=== PATIENT | female | born 1975 | race Caucasian/White ===

== ENCOUNTER 2019-06-13 15:33 | Outpatient (CLI) | payer MEDICARE, MEDICAID, SELFPAY | END 2019-06-13 15:34 | disposition home or self-care (01) | LOC: SPT 15:35 | PROVIDERS: Family Provider Nurse Practitioner Family; PCP Family Medicine; Visit Provider Orthopaedic Surgery | DX: G56.03 Carpal tunnel syndrome, bilateral upper limbs (principal) | CPT/HCPCS: L3908 ==

== ENCOUNTER → 2020-09-18 10:42 | Outpatient (BNVA) | payer MEDICARE, MEDICAID, SELFPAY | PROVIDERS: Family Provider Nurse Practitioner Family; PCP Family Medicine; Visit Provider Orthopaedic Surgery | DX: Z20.822 Contact with and (suspected) exposure to COVID-19 (principal) | CPT/HCPCS: 87635 ==

== ENCOUNTER 2020-09-24 10:17 | Day surgery (SDC) | payer MEDICARE, MEDICAID, SELFPAY ==
[2020-09-23 16:30] VITALS: BMI 36.8
[2020-09-24] VITALS (8 sets, daily range): BP systolic 116–170; BP diastolic 63–96; PULSE 63–89; RESP 16–18; TEMP 36.5–37.2; O2SAT 96–99
[2020-09-24 10:45] LABS: OR HCG Qualitative Urine Negative (Negative)
[2020-09-24] MEDS: sodium chloride 0.9% 1,000 ML 30 ML IV (11:10)
--- NOTE | 2020-09-24 12:35 | ANES.PREANE2 ---
Pre-Anesthetic Assessment Pre-Anesthetic Assessment: Height/Weight: Height 1.63 m Weight 97.522 kg Temp Pulse Resp BP Pulse Ox 98.8 F 63 16 133/73 99 09/24/20 10:38 09/24/20 10:38 09/24/20 10:38 09/24/20 10:38 09/24/20 10:38 Preop Diagnosis: Carpal tunnel syndrome Right wrist Proposed Procedure: Operation Date: 09/24/20 12:00 Proposed Procedures p Carpal Tunnel Release 30723 G56.03(Right) - Ranjit Patel MD Familial anesthetic complications: none Was Beta Megan taken within 24 hours: N/A Was Clonidine taken within 24 hours: N/A Last intake: Intake Last Liquid Date 09/23/20 Last Liquid Time 23:00 Last Solid Date 09/23/20 Last Solid Time 20:00 Social: Social History: No alcohol and No tobacco Exam: Pre-Anes Outpt Exam: alert, oriented x 3, clear to auscultation bilaterally and regular rate & rhythm Airway: Cervical ROM: WNL MP: 4 Dentition: Full Additional comments: small mouth opening GI: GI: GERD Metabolic: Metabolic: Morbid obesity Anesthetic Plan: ASA status: 2 Anesthesia: MAC and Regional (specify below) (shannon block) Risk of > 500 ml blood loss (7ml/kg in children): No Meds/Allergies Current Medications: Current Medications Generic Name Dose Route Start Last Admin Trade Name Freq PRN Reason Stop Dose Admin Sodium Chloride 1,000 mls @ 30 ml s/hr 09/24/20 10:30 09/24/20 11:10 Sodium Chloride 0.9% IV 09/25/20 10:29 30 mls/hr .Q24H KAILA Administration PFSH Anesthesia PFSH: Medical History Cervical disc disorder with myelopathy of mid-cervical region Surgical History History of tubal ligation Family History Mother Diabetes Cervical cancer Age 40 Colon cancer Age 40 Brother Hepatitis C Social History Smoking and tobacco status: never smoked Alcohol intake: never Lives independently: Yes Household members: significant other and children Current occupational status: unemployed History of recent travel: No Data Anesthesia Other Labs: Laboratory Results - last 48 hr 09/24/20 10:44 Urine HCG, Qual Negative Cardiac Studies: No Data to Display
--- NOTE | 2020-09-24 13:22 | W.PM.OPSUD ---
Surgery/Procedure H&P Update DATE OF PROCEDURE: September 24, 2020 DATE H&P PERFORMED: 09/01/20 PREOP DIAGNOSIS: Carpal tunnel syndrome Right wrist PLANNED PROCEDURE: Operation Date: 09/24/20 12:00 Proposed Procedures p Carpal Tunnel Release [id number] G56.03(Right) - Ranjit Patel MD
[2020-09-24] MEDS: ondansetron 2 mg/ML SDV 2 mL 4 MG IVP (14:24)
--- NOTE | 2020-09-24 14:34 | PM.OP ---
Operative Report Date of procedure: September 24, 2020 Pre-op Diagnosis: Carpal tunnel syndrome Right wrist Post-op diagnosis: same Post-op Findings: As above Procedure Done: Right carpal tunnel syndrome Pathology: none sent Surgeon: Ranjit Patel Anesthesia: Nerve Block (Dunlevy block) Estimated blood loss (mL): 2 Tourniquet time (min): 20 Findings: No masses or space-occupying lesions were seen with the carpal tunnel Condition: stable Disposition: PACU Procedure: Patient was taken to the operating room and anesthesia provided by the anesthesia service. She was prepped and draped with the arm exposed. A timeout was performed. A 3 cm long incision was made in line with the fourth ray from the distal edge of the carpal tunnel extending proximally. The subcutaneous fat and palmar fascia was divided with a scalpel blade. Under loupe magnification the ulnar neurovascular bundle was identified distally. A hemostat could be passed under the transverse carpal ligament allowing the distal 25% to be divided. A slotted guide was then passed beneath the transverse carpal ligament and the middle 50% divided. Blunt scissors were then passed over the guide freeing the proximal ligament. The tourniquet was deflated. Hemostasis provided with electrocautery. Wound edges were infiltrated with 10 cc of a half percent Marcaine solution. Skin edges were reapproximated with 3-0 Prolene. Sterile dressings were applied. The patient was taken to the recovery room in stable condition
--- NOTE | 2020-09-24 14:58 | ANE.PACU2 ---
Inpatient post-anesthesia follow up: Airway intact: Yes Vital signs: Temperature 97.7 F Pulse Rate 67 Respiratory Rate 16 Blood Pressure 116/63 Pulse Oximetry 97 Oxygen Delivery Me thod Room Air Oxygen Flow Rate Fraction of Inspir ed Oxygen Hydration adequate: Yes Nausea and vomiting: No Pain level: 2 Mental status: Baseline
[2020-09-24] MEDS: HYDROcodone-acetaminophen 5-325 mg Tablet 1 TAB PO (14:59)
== END 2020-09-24 15:10 | disposition home or self-care (01) ==
PROVIDERS: PCP Family Medicine; Visit Provider Orthopaedic Surgery
PROC: (CPT 64721; principal; 2020-09-24 11:50)
DX: G56.01 Carpal tunnel syndrome, right upper limb (principal); K21.9 Gastro-esophageal reflux disease without esophagitis; E66.01 Morbid (severe) obesity due to excess calories; Z68.36 Body mass index [BMI] 36.0-36.9, adult
CPT/HCPCS: 64721; 81025; 84703; J0690; J2405; J2704; J3010; J3490; J7030

== ENCOUNTER 2021-09-28 08:59 | Outpatient (CLI) | payer MEDICARE, MEDICAID, SELFPAY ==
--- NOTE | 2021-09-28 09:10 | US_ITS ---
WS: [id number] RIGHT UPPER QUADRANT ULTRASOUND HISTORY: RUQ ABDOMINAL PAIN COMPARISON: None available. Liver: 17.9 cm in length. Very mild enlargement of the liver. No mass or bile duct dilatation. Portal Vein: Normal hepatopetal flow with monophasic waveform. Gallbladder: Normally distended gallbladder with no stones or wall thickening. CBD: 0.4 cm Pancreas: Normal size and echogenicity. Right kidney: 9.3 cm in length. Normal size and echogenicity. No hydronephrosis or mass. Aorta and IVC: Unremarkable abdominal aorta and IVC. No ascites. US/US abdomen limited [id number] IMPRESSION: Normal RIGHT upper quadrant ultrasound.
== END 2021-09-28 09:00 | disposition home or self-care (01) ==
LOC: RAD 09:01
PROVIDERS: PCP Family Medicine; Visit Provider Nurse Practitioner Family
DX: R10.11 Right upper quadrant pain (principal)
CPT/HCPCS: 76705

== ENCOUNTER → 2021-10-13 14:24 | Outpatient (BNVA) | payer MEDICARE, MEDICAID, SELFPAY | PROVIDERS: Visit Provider Surgery | DX: K76.0 Fatty (change of) liver, not elsewhere classified (principal); R10.11 Right upper quadrant pain | CPT/HCPCS: 99203 ==

== ENCOUNTER 2021-12-28 10:08 | Outpatient (CLI) | payer MEDICARE, MEDICAID, SELFPAY ==
--- NOTE | 2021-12-28 10:00 | NM_ITS ---
WS: [id number] NUCLEAR MEDICINE HIDA SCAN CLINICAL INFORMATION: abd pain TECHNIQUE: Following intravenous administration of 6.7 mCi of technetium 99m mebrofenin, images of th e abdomen were obtained over the course of 60 minutes. Next, gallbladder ejection fraction was determ ined by obtaining preprandial and one-hour postprandial images of the gallbladder following oral theo stion of Ensure. COMPARISON: FINDINGS: Hepatomegaly. Normal hepatic uptake at 5 minutes. Gallbladder is visualized by 15 minutes. No evidenc e of acute cholecystitis. Normal common bile duct and small bowel activity. Normal hepatic excretion. Gallbladder ejection fraction 64% within normal limits. No evidence of chronic cholecystitis. NM/NM hepatobiliary w phar* [id number] IMPRESSION: 1. No evidence of acute or chronic cholecystitis. 2. Gallbladder ejection fraction 64% within normal limits.
== END 2021-12-28 10:09 | disposition home or self-care (01) ==
LOC: RAD 10:11
PROVIDERS: Visit Provider Surgery
DX: R10.9 Unspecified abdominal pain (principal)
CPT/HCPCS: 78227; A9537

== ENCOUNTER → 2022-01-13 14:12 | Outpatient (BNVA) | payer MEDICARE, MEDICAID, SELFPAY | PROVIDERS: Visit Provider Surgery | DX: Z09 Encounter for follow-up examination after completed treatment for conditions other than malignant neoplasm (principal); K76.0 Fatty (change of) liver, not elsewhere classified; R10.11 Right upper quadrant pain | CPT/HCPCS: 99213 ==

== ENCOUNTER 2022-03-16 18:27 | Emergency (ER) | payer MEDICARE, MEDICAID, SELFPAY ==
--- NOTE | 2022-03-16 18:28 | XRR_ITS ---
PROCEDURE INFORMATION: Exam: XR Chest Exam date and time: 03/16/2022 6:54 PM Age: 47 years old Clinical indication: Chest wall pain; Additional info: Cp TECHNIQUE: Imaging protocol: Radiologic exam of the chest. Views: 1 view. COMPARISON: CR XR chest 2V* [id number] 12/03/2015 3:13 PM FINDINGS: Lungs: Unremarkable. No consolidation. Pleural spaces: Unremarkable. No pleural effusion. No pneumothorax. Heart/Mediastinum: Mild cardiomegaly. Bones/joints: Thoracolumbar scoliosis. XR/XR chest 1V portable [id number] IMPRESSION: No acute finding.
--- NOTE | 2022-03-16 18:37 | ECG_ITS ---
[facility] Test Date: 2022-03-16 Pat Name: Aure Moscoso Department: Room: Gender: Female Title Manager: : 1975 Requested By: Jurgen Lucero Order Number: [id number] Bassam MD: Farhana Zabala M.D. Measurements Intervals [place] Rate: 57 P: 22 IA: 158 QRS: 30 QRSD: 90 T: 18 QT: 389 QTc: 381 Interpretive Statements SINUS BRADYCARDIA POSSIBLE ANTERIOR MYOCARDIAL INFARCTION , OF INDETERMINATE AGE [30 ms Q WAVE IN V3/V4, OR R < 0.2 mV IN V4] No previous ECG available for comparison Electronically Signed On 03-16-2022 22:45:52 CDT by Farhana Zabala M.D. [id number] f
[2022-03-16 18:39] VITALS: BP 129/67; PULSE 60; RESP 14; TEMP 36.6; O2SAT 97; BMI 32.9
--- NOTE | 2022-03-16 18:50 | ED_ITS ---
HPI - Chest Pain General: Chief Complaint: Chest Pain Stated Complaint: cp Time Seen by Provider: 03/16/22 18:45 Source: patient Mode of arrival: ambulatory Limitations: no limitations History of Present Illness: 47-year-old female states she has been having chest pain over the last week. She states the pain is been sharp in nature with some radiation to her arm. She denies any worsening improving factors denies any shortness of breath or diaphoresis. She has no history of hypertension or diabetes she is a non-smoker. She denies any cough or fever. Associated symptoms: Deny abdominal pain, dyspnea, fever(s), nausea or vomiting Review of Systems Const: Denies: fever(s), chills, body aches or change in appetite Eyes: Denies: blurry vision or eye discomfort ENMT: Denies: throat pain or dental pain Card: Reports: chest pain Resp: Denies: dyspnea GI: Denies: abdominal pain, nausea, vomiting or diarrhea : Denies: dysuria Musc: Denies: neck pain or back pain Skin/Breast: Denies: rash Neuro: Denies: headache(s) Psych: Denies: depression Mihai/Lymph: Denies: easy bruising All/Imm: Denies: urticaria PFSH ED PFSH: Medical History Cervical disc disorder with myelopathy of mid-cervical region Surgical History History of tubal ligation Family History Mother Diabetes Cervical cancer Age 40 Colon cancer Age 40 Brother Hepatitis C Social History Smoking and tobacco status: never smoked Alcohol intake: never Lives independently: Yes Household members: significant other and children Current occupational status: unemployed History of recent travel: No Physical Exam Const: COMMON NORMALS: no acute distress, patient oriented x3 and healthy appearing HENMT: COMMON NORMALS: normocephalic and atraumatic HEAD & SCALP: normocephalic and atraumatic Eye: COMMON NORMALS: Equal, round and reactive pupils present and EOMs intact bilaterally PUPIL: Yes Equal, round and reactive pupils present Neck/C-Spine: COMMON NORMALS: full ROM and supple Chest: COMMONS NORMALS: normal inspection of the chest and normal palpation of entire chest wall Resp: COMMON NORMALS: normal respiratory effort, No retractions, No use of accessory muscles and clear to auscultation bilaterally AUSCULTATION: clear to auscultation bilaterally Cardio: COMMON NORMALS: regular rate, regular rhythm and No murmurs present (Cardio) RATE: regular rate RHYTHM: regular rhythm GI: COMMON NORMALS: Normal to inspection, nondistended, normoactive bowel sounds present, Soft to palpation, non-tender and no masses PALPATION: Yes Soft to palpation Extremity: COMMON NORMALS: normal to inspection and full ROM Neuro: COMMON NORMALS: patient oriented x3, moves all extremities and no focal motor deficits Psych: COMMON NORMALS: mental status grossly normal, Normal thought process present and cooperative THOUGHT PROCESS: Normal thought process present Skin: COMMON NORMALS: no rashes or lesions noted and no wounds GENERAL SKIN EXAM: no rashes or lesions noted Course Vital Signs: Vital signs: Vital Signs Temperature 97.8 F 03/16/22 18:39 Pulse Rate 62 03/16/22 19:13 Respiratory Rate 15 03/16/22 19:13 Blood Pressure 136/71 03/16/22 19:13 Pulse Oximetry 97 03/16/22 19:13 Oxygen Delivery Me thod 03/16/22 19:13 MDM - Chest Pain Medical Decision Making Patient presents for chest pains atypical in nature patient's troponins here are normal EKG is normal as well she has no signs of acute coronary syndrome she has no signs of pulmonary embolism or aortic dissection she is stable for discharge she is to follow-up with PCP in 2 to 4 days and return if worsening. Lab Data : 03/16/22 18:53 03/16/22 18:53 Radiology Impressions Chest X-Ray 03/16/22 18:28 IMPRESSION: No acute finding. Laboratory Results WBC 9.3 10^3/uL (4.0-10.0) 03/16/22 18:53 RBC 4.73 10^6/uL (4.1-5.3) 03/16/22 18:53 Hgb 14.5 g/dL (11.5-15.3) 03/16/22 18:53 Hct 44.8 % (37.0-47.0) 03/16/22 18:53 MCV 94.7 fl (81-99) 03/16/22 18:53 MCH 30.7 pg (28.0-34.0) 03/16/22 18:53 MCHC 32.4 g/dL (30.0-36.0) 03/16/22 18:53 RDW 13.2 % (12.1-15.1) 03/16/22 18:53 Plt Count 244 10^3/cmm (130-400) 03/16/22 18:53 MPV 12.8 fL (7.4-10.4) H 03/16/22 18:53 Neut % (Auto) 53.7 % 03/16/22 18:53 Lymph % (Auto) 40.1 % 03/16/22 18:53 [place] % (Auto) 5.4 % 03/16/22 18:53 Eos % (Auto) 0.1 % 03/16/22 18:53 Baso % (Auto) 0.4 % 03/16/22 18:53 Neut # (Auto) 5.01 10^3/uL (1.8-7.7) 03/16/22 18:53 Lymph # (Auto) 3.8 10^3/uL (0.8-4.8) 03/16/22 18:53 [place] # (Auto) 0.5 10^3/uL (0.2-0.9) 03/16/22 18:53 Eos # (Auto) 0.0 10^3/uL (0.0-0.8) 03/16/22 18:53 Baso # (Auto) 0.0 10^3/uL (0.0-0.1) 03/16/22 18:53 Nucleated RBC % (auto) 0 % 03/16/22 18:53 Nucleated RBCs # 0.0 /100WBC 03/16/22 18:53 PT 13.70 SECONDS (12.1-14.9) 03/16/22 18:53 INR 1.02 (0.8-1.2) 03/16/22 18:53 Sodium 138 mmol/L (136-145) 03/16/22 18:53 Potassium 3.9 mmol/L (3.5-5.1) 03/16/22 18:53 Chloride 104 mmol/L (98-107) 03/16/22 18:53 Carbon Dioxide 23 mmol/L (22-29) 03/16/22 18:53 Anion Gap 14.9 (5-19) 03/16/22 18:53 BUN 8 mg/dL (6-20) 03/16/22 18:53 Creatinine 1.0 mg/dL (0.5-0.9) H 03/16/22 18:53 GFR Calculation 59.4 mL/min (90-130) L 03/16/22 18:53 Glucose 78 mg/dL (65-115) 03/16/22 18:53 Calculated Osmolality 283 mOsm/kg (285-295) L 03/16/22 18:53 Calcium 9.1 mg/dL (8.5-10.5) 03/16/22 18:53 Total Bilirubin 0.4 mg/dL (0.15-1.2) 03/16/22 18:53 AST 20 U/L (0-32) 03/16/22 18:53 ALT 15 U/L (0-33) 03/16/22 18:53 Alkaline Phosphatase 78 U/L (35-105) 03/16/22 18:53 Troponin T Baseline 6 ng/L (0-10) 03/16/22 18:53 Troponin T 120 Minute 6.00 ng/L (0-10) 03/16/22 21:02 Total Protein 7.9 g/dL (6.6-8.7) 03/16/22 18:53 Albumin 4.1 g/dL (3.5-5.2) 03/16/22 18:53 Globulin 3.8 g/dL (1.3-4.6) 03/16/22 18:53 EKG Data EKG 1: I personally reviewed and interpreted this EKG as follows: EKG interpretation date: 03/16/22 EKG interpretation time: 18:37 Interpretation: sinus tamika hr [address] or t wave abnormalities qrs 90 qtc 384 EKG 2: I personally reviewed and interpreted this EKG as follows: EKG interpretation date: 03/16/22 EKG interpretation time: 20:34 Interpretation: nsr hr [address] or t wave abnormalities qrs 80 qtc 388 Discharge Plan Discharge Patient Disposition: Home Clinical Impression: Chest pain Condition: Stable Prescriptions: No Action (DME) Cock Up Splint Rx Instructions: As directed omeprazole 40 mg Capsule,Delayed Release(Dr/Ec) 40 mg PO DAILY Discharge Orders: Discharge ED (Routine); Ordered 03/16/22 Ordered By: Jurgen Lucero Referrals: Evelyn Contreras FNP [Primary Care Provider] - 1-3 days Discharge Diet: Advance as tolerated Discharge Activity: Resume usual activity Patient Instructions: Chest Pain (ED) Coding Level of Care Code 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
[2022-03-16 19:13] VITALS: BP 136/71; PULSE 62; RESP 15; O2SAT 97
[2022-03-16] MEDS: aspirin 81 mg Chew Tablet 324 MG PO (19:20)
[2022-03-16 19:21] LABS: Basophils % 0.4 %; Eosinophils % 0.1 %; Hematocrit 44.8 % (37.0-47.0); Hemoglobin 14.5 g/dL (11.5-15.3); Lymphocytes # 3.8 10^3/uL (0.8-4.8); Lymphocytes % 40.1 %; Mean Corpuscular HGB Conc 32.4 g/dL (30.0-36.0); Mean Corpuscular Hemoglobin 30.7 pg (28.0-34.0); Mean Corpuscular Volume 94.7 fl (81-99); Mean Platelet Volume 12.8 fL (7.4-10.4); Monocytes # 0.5 10^3/uL (0.2-0.9); Monocytes % 5.4 %; Neutrophils # 5.01 10^3/uL (1.8-7.7); Neutrophils % 53.7 %; Nucleated Red Blood Cells % 0 %; Platelet Count 244 10^3/cmm (130-400); Red Blood Count 4.73 10^6/uL (4.1-5.3); Red Cell Distribution Width 13.2 % (12.1-15.1); White Blood Count 9.3 10^3/uL (4.0-10.0)
[2022-03-16 19:34] LABS: INR 1.02 (0.8-1.2)
[2022-03-16 19:35] LABS: Alanine Aminotransferase 15 U/L (0-33); Albumin Level 4.1 g/dL (3.5-5.2); Alkaline Phosphatase 78 U/L (35-105); Anion Gap 14.9 (5-19); Aspartate Amino Transferase 20 U/L (0-32); Blood Urea Nitrogen 8 mg/dL (6-20); Calcium 9.1 mg/dL (8.5-10.5); Carbon Dioxide 23 mmol/L (22-29); Chloride 104 mmol/L (98-107); Globulin 3.8 g/dL (1.3-4.6); Glomerular Filtration Rate 59.4 mL/min (90-130); Glucose 78 mg/dL (65-115); Osmolality Calculated 283 mOsm/kg (285-295); Potassium 3.9 mmol/L (3.5-5.1); Sodium 138 mmol/L (136-145); Total Bilirubin 0.4 mg/dL (0.15-1.2); Total Protein 7.9 g/dL (6.6-8.7)
[2022-03-16 19:49] LABS: Troponin(5th) Baseline 6 ng/L (0-10)
[2022-03-16 20:00] VITALS: BP 126/69; PULSE 68; RESP 14; O2SAT 95
--- NOTE | 2022-03-16 20:28 | ECG_ITS ---
[facility] Test Date: 2022-03-16 Pat Name: Aure Moscoso Department: Room: Gender: Female Unit Manager Rn: : 1975 Requested By: Jurgen Lucero Order Number: [id number] Bassam MD: Farhana Zabala M.D. Measurements Intervals [place] Rate: 62 P: 36 TX: 164 QRS: 20 QRSD: 80 T: -1 QT: 382 QTc: 391 Interpretive Statements SINUS RHYTHM WITH OCCASIONAL SUPRAVENTRICULAR PREMATURE COMPLEXES POSSIBLE ANTERIOR MYOCARDIAL INFARCTION , OF INDETERMINATE AGE [30 ms Q WAVE IN V3/V4, OR R < 0.2 mV IN V4] Compared to ECG 03/16/2022 18:37:13 Sinus bradycardia no longer present Myocardial infarct finding still present Electronically Signed On 03-16-2022 22:55:26 CDT by Farhana Zabala M.D. [id number]
[2022-03-16 20:30] VITALS: BP 129/72; PULSE 62; RESP 15; O2SAT 98
[2022-03-16 21:35] VITALS: BP 98/79; PULSE 69; RESP 15; O2SAT 96
[2022-03-16 23:00] LABS: Troponin 5 2HR Delta 0 ABS# (0-10)
== END 2022-03-16 21:42 | disposition home or self-care (01) ==
PROVIDERS: Emergency Provider Emergency Medicine; PCP Nurse Practitioner Family
DX: R07.9 Chest pain, unspecified (principal)
CPT/HCPCS: 36415; 71045; 80053; 84484; 85025; 85610; 93005; 99285

== ENCOUNTER 2022-09-16 10:25 | Outpatient (CLI) | payer MEDICARE, MEDICAID, SELFPAY ==
--- NOTE | 2022-09-16 10:35 | CT_ITS ---
WS: [id number] CT ABDOMEN AND PELVIS NONCONTRAST HISTORY: GENERALIZED ABDOMINAL PAIN/ABDOMINAL BLOATING TECHNIQUE: Imaging performed through the abdomen and pelvis. Coronal and sagittal reformats are submi tted. All CT scans at [facility] use at least one of these dose optimization techniques: auto mated exposure control; mA and/or kV adjustment per patient size (includes targeted exams where dose is matched to clinical indication); or iterative reconstruction. DLP: 718.08 mGy.cm COMPARISON: None available. Lower thorax: Lung bases are clear. Visualized heart is normal. No hiatal hernia. Liver: Normal size liver. No mass or bile duct dilatation. Gallbladder: Normal gallbladder. No duct dilatation. Pancreas: Normal size and attenuation. Normal pancreatic duct. No pancreatitis or mass. Spleen: Normal. Adrenal glands: Normal. No mass. Right kidney: Normal size kidney with no mass or hydronephrosis. Left kidney: Normal size kidney with no mass or hydronephrosis. Aorta: Normal abdominal aorta, no aneurysm or atherosclerosis. No free fluid, intraperitoneal air or significant lymphadenopathy. GI tract: Normal noncontrast imaging of the stomach, small bowel and colon. No obstruction or wall th ickening. Normal appendix. Constipation. Abdominal wall: Negative. No hernia. Pelvis: Normal. Bilateral tubal ligation clips. Osseous structures: LEFT curvature lumbar spine. CT/CT abdomen pelvis wo con [id number] IMPRESSION: 1. No acute abdominal or pelvic abnormalities. 2. Mild diffuse constipation with no obstruction. Normal appendix. 3. No ascites or adenopathy.
[2022-09-16] MEDS: iohexol 350 mg/mL 500 mL Btl (per mL) PO (11:40)
== END 2022-09-16 10:26 | disposition home or self-care (01) ==
LOC: RAD 10:30
PROVIDERS: PCP Nurse Practitioner Family; Visit Provider Nurse Practitioner Family
DX: R10.84 Generalized abdominal pain (principal); R14.0 Abdominal distension (gaseous)
CPT/HCPCS: 74176; Q9967

== ENCOUNTER → 2023-04-25 10:17 | Outpatient (BNVA) | payer MEDICARE, MEDICAID, SELFPAY | PROVIDERS: PCP Nurse Practitioner Family; Visit Provider Podiatrist Foot & Ankle Surgery | DX: M76.822 Posterior tibial tendinitis, left leg; M72.2 Plantar fascial fibromatosis; M24.572 Contracture, left ankle; Z46.89 Encounter for fitting and adjustment of other specified devices | CPT/HCPCS: 73630; 97760; 99203; L1902 ==

== ENCOUNTER 2023-04-25 14:38 | Outpatient (CLI) | payer MEDICARE, MEDICAID, SELFPAY | END 2023-04-25 14:39 | disposition home or self-care (01) | LOC: SPT 14:44 | PROVIDERS: PCP Nurse Practitioner Family; Visit Provider Podiatrist Foot & Ankle Surgery | DX: Z46.89 Encounter for fitting and adjustment of other specified devices (principal); M25.572 Pain in left ankle and joints of left foot | CPT/HCPCS: 97760; 99203; L1902 ==

== ENCOUNTER → 2023-05-16 08:28 | Outpatient (BNVA) | payer MEDICARE, MEDICAID, SELFPAY | PROVIDERS: PCP Nurse Practitioner Family; Visit Provider Podiatrist Foot & Ankle Surgery | DX: M72.2 Plantar fascial fibromatosis (principal); M76.822 Posterior tibial tendinitis, left leg; M24.572 Contracture, left ankle | CPT/HCPCS: 20550; J1100; J3301 ==

== ENCOUNTER → 2023-12-14 14:45 | Outpatient (BNVA) | payer MEDICARE, MEDICAID, SELFPAY | PROVIDERS: PCP Nurse Practitioner Family; Visit Provider Podiatrist Foot & Ankle Surgery | DX: M76.822 Posterior tibial tendinitis, left leg; M72.2 Plantar fascial fibromatosis; M24.572 Contracture, left ankle | CPT/HCPCS: 99213 ==